=== PATIENT | male | born 1990 | race Caucasian/White ===

== ENCOUNTER 2016-08-05 00:24 | Emergency (ER) ==
[2016-08-05 00:36] VITALS: BP 126/75
[2016-08-05] MEDS ORDERED: PHENERGAN WITH CODEINE LIQUID PO ONE (00:53)
--- NOTE | 2016-08-05 01:01 | PROVIDER DOCUMENTATION ---
HPI-General Adult - General Chief Complaint: Cold Symptoms Stated Complaint: COUGH Time Seen by Provider: 08/05/16 00:44 Source: patient Allergies/Adverse Reactions: Patient Allergies Allergy/AdvReac Type Severity Reaction Status Date / Time No Known Allergies Allergy Verified 08/05/16 00:42 - History of Present Illness -Gen Adult Nature of Presenting Problems: 25 Y/O F presents to ED with cold symptoms. Pt states that he has had this cough for about 3 days. Pt states he has been in contact with sick contacts his daughter had RSV. Pt states that the cough is starting to make him gag, he originally had a fever, and loss of appetite. Location of Pain/Injury: reports: generalized Pain Radiation: reports: no radiation Quality of Pain: reports: aching Severity: reports: moderate Onset/Duration: reports: 3 days ago Timing: reports: still present Context/Activities at Onset: reports: none Associated Symptoms: reports: cough, muscle aches, sinus congestion/drainage. denies: diarrhea, fatigue, nausea, shortness of breath Similar Symptoms Previously?: No Recently seen or treated by another doctor?: No Review of Systems - Adult - REVIEW OF SYSTEMS - ADULT Constitutional: denies: chills, fever Eyes: reports: no symptoms reported Ears, Nose, Mouth & Throat: reports: sinus problem, throat pain Cardiovascular: reports: no symptoms reported Respiratory: reports: cough Gastrointestinal: reports: no symptoms reported Genitourinary: reports: no symptoms reported Musculoskeletal: reports: no symptoms reported Integumentary: reports: no symptoms reported Neurological: reports: no symptoms reported Psychiatric: reports: no symptoms reported Endocrine: reports: no symptoms reported Hematologic/Lymphatic: reports: no symptoms reported Allergic/Immunologic: reports: no symptoms reported All Other Systems: Reviewed and Negative Past History - Adult - PAST MEDICAL HISTORY-ADULT Review of Records: reports: Old Records Reviewed, Nursing Assessment Review, Medications Reviewed, Social history reviewed & non-contributory. Major Childhood Illnesses: reports: denies history Cardiovascular: reports: denies history Respiratory: reports: denies history Gastrointestinal: reports: denies history Obstetrical/Gynecological: reports: denies history Genitourinary: reports: denies history Musculoskeletal: reports: denies history Neurological: reports: denies history Endocrine/Immune: reports: denies history Other Conditions: reports: denies history - PRIOR SURGERIES/PROCEDURES Surgical/Procedure History: reports: orthopedic (extremity) - IMMUNIZATION STATUS Childhood Immunizations: See Nurse Assessment Flu Vaccine: See Nurse Assessment - FAMILY HISTORY Family History: reviewed, not pertinent - SOCIAL HISTORY Smoking: chew Substance Use: none/never Alcohol Use Frequency: never Living Situation: family Physical Exam-General - PHYSICAL EXAM-ADULT Initial Vital Signs Reviewed: Yes - CONSTITUTIONAL General Appearance: appears well, alert, no apparent distress - EYES Eyes: PERRL/EOMI, pink conjunctivae - HEAD, EARS, NOSE, MOUTH & THROAT HENMT: normocephalic/atraumatic, moist mucous membranes, normal ENT inspection - NECK Neck: non-tender, full range of motion, normal inspection - RESPIRATORY Respiratory: chest non-tender, lungs clear, normal breath sounds - CARDIOVASCULAR Cardiovascular: normal peripheral pulses, regular rate, rhythm, no edema - GASTROINTESTINAL (ABDOMEN) Abdominal Exam: normal bowel sounds, non tender, soft - LYMPHATIC Lymphatic: no adenopathy - MUSCULOSKELETAL Back Exam: normal inspection, no CVA tenderness, no vertebral tenderness Extremity: normal range of motion, non-tender, normal gait - SKIN Integumentary: normal color, normal turgor, warm/dry - NEUROLOGIC Neurologic: grossly normal, no motor/sensory deficits - PSYCHIATRIC Psych/Mental Status: normal mood/affect, normal thought content, normal thought process, oriented x 3 Progress - PLAN OF CARE/RESULTS Progress/Plan/Lab Results: Orders Category Date Time Status Codeine/Promethazine [Phenergan with Codeine Liquid] Med 08/05/16 00:53 Discontinued 10 ml PO NOW ONE Vital Signs - 24 hr 08/05/16 00:35 Temperature 98.9 F Pulse Rate 93 H Respiratory 20 Rate Blood Pressure 126/75 O2 Sat by Pulse 94 L Oximetry Departure - Departure Time of Disposition Order: 00:57 DIAGNOSIS: URI (upper respiratory infection) Qualifiers: URI type: unspecified URI Qualified Code(s): J06.9 - Acute upper respiratory infection, unspecified Disposition: HOME 01 Certified Medical Emergency: Emergent Condition: Fair Additional Instructions: ED Follow Up Instructions: You have been treated by a care provider in the Emergency Department. These instructions are being provided to you so you can have an understanding of how to care for yourself upon discharge. Upon discharge from the Emergency Department, you are responsible for making arrangements for follow-up care by a physician of your choice. Take all prescribed medications as directed. Return to the Emergency Department immediately for any new or worsening symptoms. You may call the Physician Referral phone number at [phone] to obtain a list of Physicians who are taking new patients. Prescriptions: Codeine/Promethazine [Phenergan with Codeine] 10 ml PO TID PRN PRN #120 ml PRN Reason: Cough Benzonatate [Tessalon] 200 mg PO TID PRN PRN #30 capsule PRN Reason: Cough Attestation - Scribe Verification/Attestation Scribe:: Jacinda Ho Acting as Scribe for:: Armando Atkins Scribe documention review:: This chart was documented by a scribe and accurately reflects the service the provider performed and the decisions made by the provider.
== END 2016-08-05 01:19 | disposition home or self-care (01) ==
LOC: ED 00:24
DX: J06.9 Acute upper respiratory infection, unspecified (principal); R05 Cough; M79.1 Myalgia; R09.81 Nasal congestion; J02.9 Acute pharyngitis, unspecified; F17.220 Nicotine dependence, chewing tobacco, uncomplicated
CPT/HCPCS: 99282